=== PATIENT | female | born 1985 | race Caucasian/White ===

== ENCOUNTER 2020-07-29 11:02 | Inpatient (IN) | payer BC ==
[~2020-07-29] VITALS: Ht 170.2 cm; Wt 56.7 kg
[2020-07-29 12:20] LABS: ANION GAP 15.8 mmol/L (8-16); CALCIUM 9.9 mg/dL (8.5-10.1); CARBON DIOXIDE 26.2 mmol/L (21.0-32.0)
[2020-07-29 12:22] LABS: BASOPHILS 0.2 % (0-2); EOSINOPHILS 0.6 % (0-7); HEMATOCRIT 39.6 % (36.0-48.0); HEMOGLOBIN 12.7 g/dL (12-16); LYMPHOCYTES 11.7 % (15-50); MCH 28.9 pg (26.0-34.0); MCHC 32.1 g/dL (31.0-37.0); MCV 90.2 fL (80.0-100.0); MEAN PLATELET VOLUME 8.7 fL (7.4-10.4); MONOCYTES 3.5 % (2-11)
[2020-07-29 12:24] LABS: HCG SERUM NEGATIVE (NEGATIVE)
[2020-07-29 12:27] LABS: ALBUMIN 4.4 g/dL (3.4-5.0); BILIRUBIN - TOTAL 0.29 mg/dL (0.2-1.3); PROTEIN - SERUM 8.8 g/dL (6.4-8.2)
[2020-07-29 12:37] LABS: PLATELET COUNT 410 10x3/uL (130-400)
[2020-07-29 16:03] LABS: BILIRUBIN NEGATIVE (NEGATIVE); KETONE NEGATIVE mg/dL (< 1+); NITRITE NEGATIVE (NEGATIVE); SQUAMOUS EPITHELIAL 5 HPF (0-4); UROBILINOGEN NORMAL mg/dL (< 2)
--- NOTE | 2020-07-29 16:32 | NUR ---
SPOKE TO DR. COPELAND ABOUT INSULIN ORDER, HE STATED TO HOLD INSULIN AND DOCCUMENT REFUSAL DUE TO PATIENT STATING SHE NEVER HAS BEEN ON INSULIN NOR MEDICATION FOR BLOOD SUGAR AND FOR BLOOD SUGAR BEING 124.
--- NOTE | 2020-07-29 19:51 | NUR ---
PT ARRIVED ON UNIT VIA STRETCHER, ESCORTED BY ER NURSE AND FAMILY MEMBER. POSITIONED IN BED FOR COMFORT. IV TO LEFT AC PATENT WITH NS INFUSING AT 100 ML/HR, AND PROTINIX INFUSING AT 10 ML/HR. WILL MONITOR FOR NEEDS.
[2020-07-29 20:00] VITALS: BP 110/70
--- NOTE | 2020-07-29 20:25 | NUR ---
HS MEDICATIONS GIVEN. PT RESTING QUIETLY AT THIS TIME. FAMILY MEMBER IS AT BEDSIDE.
--- NOTE | 2020-07-29 22:39 | NUR ---
PT WITH ELEVATED TEMP OF 101.6 DEGREES. TARA WESTFALL AND RECEIVED ORDER FOR TYLENOL SUPP 650 MG Q6HR PRN FEVER.
--- NOTE | 2020-07-29 22:49 | NUR ---
TEMP 99.6 TEMPORALLY....PT DECLINES TYLENOL SUPPOSITORY AT THIS TIME
[2020-07-30] VITALS: BP 124/59
[2020-07-30 00:33] VITALS: BP 110/70; BMI 19.6
--- NOTE | 2020-07-30 02:46 | NUR ---
PT CRYING AND YELLING IN PAIN. GAVE ZOFRAN 4 MG IVP WITH NO IMPROVEMENT. CALLED [facility] AND RECEIVED ORDER TO CHANGE DILAUDID FROM SCHEDULED TO MANUFACTURING SOFTWARE ENGINEER - 0.2/11/18 SETTINGS.
[2020-07-30 04:00] VITALS: BP 122/73
--- NOTE | 2020-07-30 04:00 | NUR ---
PAIN BETTER CONTROLLED NOW WITH MANAGER FUND. PT RESTING WITH EYES CLOSED AT THIS TIME.
[2020-07-30 05:55] LABS: BASOPHILS 0.1 % (0-2); EOSINOPHILS 0 % (0-7); LYMPHOCYTES 6.7 % (15-50); MCH 29.4 pg (26.0-34.0); MEAN PLATELET VOLUME 8.6 fL (7.4-10.4); NEUTROPHILS 87.2 % (40-80); RDW 15.8 % (11.5-14.5)
[2020-07-30 06:29] LABS: ALBUMIN 2.9 g/dL (3.4-5.0); ALKALINE PHOSPHATASE 33 U/L (30-120); ALT (SGPT) 7 U/L (10-68); BILIRUBIN - TOTAL 0.39 mg/dL (0.2-1.3); CALC OSMOLALITY 279 mosm/kg (275-300); CARBON DIOXIDE 24.3 mmol/L (21.0-32.0); CHLORIDE - SERUM 106 mmol/L (98-107); CREATININE - SERUM 0.6 mg/dL (0.6-1.3); GLUCOSE 108 mg/dL (74-106); LIPASE 477 U/L (73-393); MAGNESIUM - SERUM 1.7 mg/dL (1.8-2.4); POTASSIUM - SERUM 3.4 mmol/L (3.5-5.1); PROTEIN - SERUM 6.4 g/dL (6.4-8.2); SODIUM 139 mmol/L (136-145); UREA NITROGEN 14 mg/dL (7-18); eGFR NON AFRICAN AMERICAN > 90 mL/min (90-120)
[2020-07-30 06:36] LABS: HEMATOCRIT 28.7 % (36.0-48.0); HEMOGLOBIN 9.5 g/dL (12-16); PLATELET COUNT 214 10x3/uL (130-400); RBC 3.22 10x6/uL (4.00-5.40); WBC 10.3 10x3/uL (4.8-10.8)
--- NOTE | 2020-07-30 09:00 | NUR ---
ASSESSMENT PEER FLOW SHEET. PATIENT IS WITHOUT DISTRESS.MONITOR FOR NEEDS
[2020-07-30 09:07] VITALS: BP 124/70
[2020-07-30 13:51] VITALS: Ht 170.2 cm; Wt 56.7 kg
[2020-07-30 17:08] VITALS: BP 129/75
[2020-07-30 20:00] VITALS: BP 117/70
--- NOTE | 2020-07-30 20:30 | NUR ---
ASSESSMENT PER FLOW SHEET, VS OBTAINED PER DELI/BAKERY ASSOCIATE, IV IN RIGHT WRIST INTACT WITH NO REDNESS OR EDEMA INFUSING NS, PROTONIX DRIP, AND DILAUDID PER MD ORDERS, SEE EMAR, PT INST ON NPO, VERBALIZES UNDERSTANDING, DENIES NEEDS AT THIS TIME, S/O AT BEDSIDE
[2020-07-31] VITALS (7 sets, daily range): BP systolic 120–140; BP diastolic 68–81
[2020-07-31 06:19] LABS: BASOPHILS 0.2 % (0-2); EOSINOPHILS 0.1 % (0-7); HEMOGLOBIN 8.4 g/dL (12-16); LYMPHOCYTES 6.6 % (15-50); MCH 29.8 pg (26.0-34.0); MCHC 33.5 g/dL (31.0-37.0); MEAN PLATELET VOLUME 8.2 fL (7.4-10.4); MONOCYTES 5.5 % (2-11); NEUTROPHILS 87.6 % (40-80); PLATELET COUNT 200 10x3/uL (130-400); RBC 2.81 10x6/uL (4.00-5.40); RDW 15.5 % (11.5-14.5); WBC 8.9 10x3/uL (4.8-10.8)
[2020-07-31 07:10] LABS: ALBUMIN 2.6 g/dL (3.4-5.0); ALKALINE PHOSPHATASE 37 U/L (30-120); BILIRUBIN - TOTAL 0.25 mg/dL (0.2-1.3); CALC OSMOLALITY 274 mosm/kg (275-300); CALCIUM 7.8 mg/dL (8.5-10.1); CARBON DIOXIDE 23.2 mmol/L (21.0-32.0); CHLORIDE - SERUM 105 mmol/L (98-107); CREATININE - SERUM 0.5 mg/dL (0.6-1.3); GLUCOSE 88 mg/dL (74-106); MAGNESIUM - SERUM 1.9 mg/dL (1.8-2.4); PHOSPHOROUS 1.6 mg/dL (2.5-4.9); POTASSIUM - SERUM 3.4 mmol/L (3.5-5.1); PROTEIN - SERUM 6.4 g/dL (6.4-8.2); SODIUM 138 mmol/L (136-145); UREA NITROGEN 12 mg/dL (7-18); eGFR NON AFRICAN AMERICAN > 90 mL/min (90-120)
[2020-07-31 07:12] LABS: ALT (SGPT) 12 U/L (10-68); LIPASE 170 U/L (73-393)
[2020-08-01 04:00] VITALS: BP 115/72
[2020-08-01 06:15] LABS: BASOPHILS 0.2 % (0-2); EOSINOPHILS 0.3 % (0-7); HEMATOCRIT 24.1 % (36.0-48.0); LYMPHOCYTES 7.2 % (15-50); MCH 29.7 pg (26.0-34.0); MCHC 33.2 g/dL (31.0-37.0); MCV 89.5 fL (80.0-100.0); MEAN PLATELET VOLUME 8.8 fL (7.4-10.4); MONOCYTES 7.3 % (2-11); PLATELET COUNT 189 10x3/uL (130-400); RBC 2.69 10x6/uL (4.00-5.40); RDW 15.7 % (11.5-14.5)
[2020-08-01 06:33] LABS: ALBUMIN 2.5 g/dL (3.4-5.0); ALKALINE PHOSPHATASE 32 U/L (30-120); ALT (SGPT) 14 U/L (10-68); BILIRUBIN - TOTAL 0.26 mg/dL (0.2-1.3); CALC OSMOLALITY 276 mosm/kg (275-300); CALCIUM 8.3 mg/dL (8.5-10.1); CARBON DIOXIDE 22.4 mmol/L (21.0-32.0); CHLORIDE - SERUM 104 mmol/L (98-107); CREATININE - SERUM 0.5 mg/dL (0.6-1.3); GLUCOSE 81 mg/dL (74-106); LIPASE 189 U/L (73-393); MAGNESIUM - SERUM 1.9 mg/dL (1.8-2.4); PHOSPHOROUS 1.8 mg/dL (2.5-4.9); PROTEIN - SERUM 6.6 g/dL (6.4-8.2); SODIUM 140 mmol/L (136-145); UREA NITROGEN 11 mg/dL (7-18); eGFR NON AFRICAN AMERICAN > 90 mL/min (90-120)
--- NOTE | 2020-08-01 07:30 | NUR ---
REC'D IN BED WITH EYES CLOSED EASILY TO AROUSED WHEN NAME IS SALMERON. RESP EVEN AND UNLABORED WITH NO DISTESS NOTED. ASSESSMENT COMPLETED. NO C/O NOTED OR VOICE. C/L IN REACH AT BEDSIDE.
[2020-08-01 08:41] VITALS: BP 134/79
[2020-08-01] MEDS ORDERED: NEURONTIN800 MG PO (09:03)
[2020-08-01] MEDS ORDERED: KLONOPIN0.5 MG PO (09:05)
[2020-08-01] MEDS ORDERED: HYDROCODON-ACE1 EA10 PO (09:06)
[2020-08-01 13:42] VITALS: BP 126/84
--- NOTE | 2020-08-01 16:30 | NUR ---
PT VOICE CONCERN ABOUT HER DIET CHANGING FROM NPO TO CLEAR LIQUIDS. THIS NURSE INFORMED PT THAT DR. MOHR HAD CHANGE HER DIET ON THIS AFTERNOON AND THAT SHE IS FREE TO HAVE LIQUIDS AT THIS TIME. PT STATED THAT SHE WANT TO SPOKE WITH DR. CAMP TO GET THE OKAY. DR. CAMP WAS NOTIFIED OF PT CONCERN AND THAT PT WANT TO SPEAK WITH HIM.
--- NOTE | 2020-08-01 17:03 | NUR ---
I have reviewed this patient and I concur with the Shift Assessment completed by the Licensed Practical Nurse today this shift.
[2020-08-01 17:04] VITALS: BP 126/78
[2020-08-01 20:00] VITALS: BP 119/74
[2020-08-02] VITALS: BP 112/69
[2020-08-02 04:00] VITALS: BP 124/78
[2020-08-02 06:17] LABS: BASOPHILS 0.3 % (0-2); EOSINOPHILS 2.1 % (0-7); HEMATOCRIT 25.5 % (36.0-48.0); HEMOGLOBIN 8.5 g/dL (12-16); LYMPHOCYTES 11.5 % (15-50); MCH 29.6 pg (26.0-34.0); MCHC 33.5 g/dL (31.0-37.0); MCV 88.4 fL (80.0-100.0); MEAN PLATELET VOLUME 8.8 fL (7.4-10.4); MONOCYTES 10.5 % (2-11); NEUTROPHILS 75.6 % (40-80); PLATELET COUNT 211 10x3/uL (130-400); RBC 2.88 10x6/uL (4.00-5.40); RDW 15.5 % (11.5-14.5)
[2020-08-02 06:27] LABS: WBC 5.4 10x3/uL (4.8-10.8)
[2020-08-02 06:49] LABS: ALBUMIN 2.8 g/dL (3.4-5.0); ALKALINE PHOSPHATASE 36 U/L (30-120); ALT (SGPT) 14 U/L (10-68); CALCIUM 8.5 mg/dL (8.5-10.1); CARBON DIOXIDE 26.4 mmol/L (21.0-32.0); CHLORIDE - SERUM 103 mmol/L (98-107); CREATININE - SERUM 0.5 mg/dL (0.6-1.3); GLUCOSE 104 mg/dL (74-106); MAGNESIUM - SERUM 1.9 mg/dL (1.8-2.4); POTASSIUM - SERUM 3.4 mmol/L (3.5-5.1); PROTEIN - SERUM 7.3 g/dL (6.4-8.2); SODIUM 139 mmol/L (136-145); eGFR NON AFRICAN AMERICAN > 90 mL/min (90-120)
[2020-08-02 06:53] LABS: LIPASE 246 U/L (73-393)
[2020-08-02 06:54] LABS: CALC OSMOLALITY 275 mosm/kg (275-300); PHOSPHOROUS 1.4 mg/dL (2.5-4.9); UREA NITROGEN 8 mg/dL (7-18)
[2020-08-02 09:41] VITALS: BP 131/76
--- NOTE | 2020-08-02 12:01 | NUR ---
I have reviewed this patient and I concur with the Shift Assessment completed by the Licensed Practical Nurse today this shift.
[2020-08-02 12:07] VITALS: BP 132/74
--- NOTE | 2020-08-02 13:32 | NUR ---
Nutrition follow-up: Diet just advanced to clear liquids +BM; loose Labs reviewed Wt: 124# Recommend: If diet unable to advance past clear liquids pt would benefit from ProcalAmine PPN short-term @ 75 ml/hr RDN will follow-up on pts progress in 3-5 days.
[2020-08-02 18:10] VITALS: BP 134/91
--- NOTE | 2020-08-02 19:01 | NUR ---
CALL WAS PLACED TO WORK OVER RIG OPERATOR WHICH IS HERBERTH ABOUT PT REQUESTING SOMETHING MORE FOR PAIN WAS INFORMED THAT IS WOULD BE OKAY TO GIVEN PER [facility]. THIS NURSE INFORMED PT AND PT STATED THAT SHE DOESN'T WANT IT. C/L IN REACH AT BEDSIDE.
[2020-08-02 21:05] VITALS: BP 120/90
[2020-08-03 06:48] LABS: BASOPHILS 0.5 % (0-2); EOSINOPHILS 3.5 % (0-7); HEMATOCRIT 23.6 % (36.0-48.0); HEMOGLOBIN 7.9 g/dL (12-16); LYMPHOCYTES 14.6 % (15-50); MCH 29.3 pg (26.0-34.0); MCHC 33.7 g/dL (31.0-37.0); MCV 86.8 fL (80.0-100.0); MEAN PLATELET VOLUME 8.4 fL (7.4-10.4); MONOCYTES 11.9 % (2-11); NEUTROPHILS 69.5 % (40-80); PLATELET COUNT 226 10x3/uL (130-400); RBC 2.71 10x6/uL (4.00-5.40); RDW 15.7 % (11.5-14.5)
[2020-08-03 06:57] LABS: ALBUMIN 2.7 g/dL (3.4-5.0); ALKALINE PHOSPHATASE 30 U/L (30-120); ALT (SGPT) 13 U/L (10-68); BILIRUBIN - TOTAL 0.22 mg/dL (0.2-1.3); CALC OSMOLALITY 278 mosm/kg (275-300); CALCIUM 8.3 mg/dL (8.5-10.1); CARBON DIOXIDE 28.8 mmol/L (21.0-32.0); CHLORIDE - SERUM 104 mmol/L (98-107); CREATININE - SERUM 0.6 mg/dL (0.6-1.3); GLUCOSE 101 mg/dL (74-106); LIPASE 204 U/L (73-393); MAGNESIUM - SERUM 1.7 mg/dL (1.8-2.4); PROTEIN - SERUM 6.7 g/dL (6.4-8.2); SODIUM 141 mmol/L (136-145); UREA NITROGEN 7 mg/dL (7-18); eGFR NON AFRICAN AMERICAN > 90 mL/min (90-120)
[2020-08-03 06:58] LABS: PHOSPHOROUS 2.6 mg/dL (2.5-4.9); POTASSIUM - SERUM 2.6 mmol/L (3.5-5.1)
--- NOTE | 2020-08-03 07:58 | NUR ---
IN BED, FAMILY AT BEDSIDE. DENIES NEEDS AT THIS TIME. BED LOW POSITION, CALL LIGHT IN REACH. WILL CONTINUE TO MONITOR.
[2020-08-03 08:20] VITALS: BP 115/66
[2020-08-03 10:10] LABS: % SATURATION 4 % (15-55); IRON 14 ug/dl (35-150); TOTAL IRON BIND CAPACITY 284 ug/dl (260-445); UNSAT IRON BIND CAPACITY 270 ug/dl (150-375)
[2020-08-03] MEDS ORDERED: LEVAQUIN750 MG PO (13:12)
[2020-08-03] MEDS ORDERED: FLAGYL500 MG PO (13:12)
[2020-08-03] MEDS ORDERED: MIRALAX17 GM PO (13:13)
[2020-08-03] MEDS ORDERED: FERROUS SULFAT325 MG PO (13:13)
[2020-08-03] MEDS ORDERED: PROTONIX40 MG PO (13:13)
[2020-08-03] MEDS ORDERED: K-DUR20 MEQ PO (13:19)
[2020-08-03 13:22] VITALS: BP 133/76
--- NOTE | 2020-08-03 15:00 | NUR ---
CALLED DR SANTIAGO RE DIET ORDERS FOR D/C. REC FULL LIQUIDS X 1 WEEK. ALSO REC PT BE D/C'D HOME ON CARAFATE 1 GM AC&HS. CALLED TO [id number]
[2020-08-03] MEDS ORDERED: CARAFATE1 G PO (15:01)
--- NOTE | 2020-08-03 15:49 | NUR ---
DISCHARGE PAPERS COMPLETE. NO FURTHER QUESTIONS. DISCUSSED EDUCATION WITH PATIENT AND FAMILY AT BEDSIDE. IV CATH REMOVED, CATH TIP INTACT. GATHERED BELONGINGS. LEFT UNIT VIA WHEELCHAIR TO HOME AT THIS TIME.
--- NOTE | 2020-08-03 20:25 | MORECARE ---
CASE MANAGEMENT DISCHARGE SUMMARY PATIENT: NIKOLAS BROCK UNIT: [id number] ADM DATE: 07/29/20 AGE: 34 : 83 SEX: F ROOM/BED: D.2223 AUTHOR: CESAR,DOC PHYSICIAN: REFERRING PHYSICIAN: KOLTON COPELAND DO DATE OF SERVICE: 08/03/20 Case Management Discharge Planning Summary COMMENTS ENTERED DATE: 08/03/20 20:18 CT COMMENT TYPE: Discharge Planning REVIEWER: Papito Pichardo CM met with patient to complete DC plan and to evaluate needs. Patient lives independently. Patient names her mother, Florinda Wolf, as her person to notify. Patient stated that her home is safe and has electricity and running water. Patient stated that she has no problems paying for medications and she fills her medications at [facility]. Patient stated that her primary care physician is Dr. Valencia. At discharge, the patient plans to return home and feels this is a safe discharge. CM discussed availability of home health, rehab services, and medical equipment. Patient declined HHS, SNF, IPR, and DME. Patient voiced no other needs at this time and is satisfied with DC plan. CM will continue to follow and will assist as needed with dc plans/needs. DCP REVIEW SUMMARY ANTICIPATED D/C DATE: 08/03/2020 EXPECTED LOS : 5 CASE STATUS: DCP Initiated INITIAL REVIEW: 07/29/2020 INITIAL REVIEWER: Papito Pichardo FINAL DISCHARGE DISPOSITION: : FINAL REVIEWER: FINAL REVIEW DATE: DCP Focus Questions & Answers DCP Evaluation QUESTION: ANSWER Patient gives permission to discuss discharge plans with: (name, relationship and number) : motherFlorinda, Patient's ability to cope with chronic illness : d. No chronic illness Patient's current cognitive status: : *Oriented to person, place, situation, time and present Family / Caregiver's ability to cope with chronic illness: : a. Adequate (ability to meet patient's medical needs, ensures patient attends medical appts.) Patient and/or caregiver agree upon recommended discharge plan? : Yes Physical Status: : Independent with ADL's Family / Caregiver's ability to cope with chronic illness: : a. Adequate (ability to meet patient's medical needs, ensures patient attends medical appts.) Functional screen assessment: : Basic needs can adequately be met by self Does the patient have the ability to pay for or attain post discharge needs / services? : Yes Living Arrangements: : Home with Extended Family Is there a likelihood that the patient will require additional services to return to the preadmission environment? : No Equipment needed for post hospitalization: : None Baseline cognitive status: : *Oriented to person, place, situation, time and present Patient with capacity for self-care or can be cared for in same environment as prior to hospitalization? : Yes Physical environment modification needed / anticipated for discharge: : No Medication Management: : Patient states can afford medications Medication Management: : Patient states can read and understand medication labels Pharmacy name(s): : [facility] Does Patient have transportation to get home and to follow-up medical appointments when discharged from the hospital? : Yes Would patient like to participate in any Care Coordination programs (if applicable): : Not applicable Does the patient have electricity at home? : Yes Does the patient have running water in their house? : Yes Equipment in use: : None Mental health screen: : No mental health history DCP Re-evaluation QUESTION: ANSWER Would patient like to participate in any Care Coordination programs (if applicable): : Not applicable PATIENT: NIKOLAS BROCK ENCOUNTER: [id number] MEDICAL RECORD#: [id number] ADMISSION DATE: 07/29/2020 DISCHARGE DATE: 08/03/2020 ATTENDING MD: KOLTON SHIPLEY : AGE: 34 MARITAL STATUS: M DC PLAN ID: [id number] FACILITY: [facility] PRINTED ON: 08/03/20 20:24 CT All edits/amendments must be made on the electronic document DICTATION DATE: 08/03/202023 IMPLEMENTATION MANAGER: JOSE MANUEL 08/03/202023 RPT#: [id number] DC DATE:08/03/20 STATUS: DIS IN [facility] [address] [place] [address] END OF REPORT
--- NOTE | 2020-08-05 08:38 | MORECARE ---
CASE MANAGEMENT DISCHARGE SUMMARY PATIENT: NIKOLAS BROCK UNIT: [id number] ADM DATE: 07/29/20 AGE: 34 : 83 SEX: F ROOM/BED: D.2223 AUTHOR: CESAR,DOC PHYSICIAN: REFERRING PHYSICIAN: KOLTON COPELAND DO DATE OF SERVICE: 08/05/20 Case Management Discharge Planning Summary COMMENTS ENTERED DATE: 08/03/20 20:18 CT COMMENT TYPE: Discharge Planning REVIEWER: Papito Pichardo CM met with patient to complete DC plan and to evaluate needs. Patient lives independently. Patient names her mother, Florinda Wolf, as her person to notify. Patient stated that her home is safe and has electricity and running water. Patient stated that she has no problems paying for medications and she fills her medications at [facility]. Patient stated that her primary care physician is Dr. Valencia. At discharge, the patient plans to return home and feels this is a safe discharge. CM discussed availability of home health, rehab services, and medical equipment. Patient declined HHS, SNF, IPR, and DME. Patient voiced no other needs at this time and is satisfied with DC plan. CM will continue to follow and will assist as needed with dc plans/needs. DCP REVIEW SUMMARY ANTICIPATED D/C DATE: 08/03/2020 EXPECTED LOS : 5 CASE STATUS: DCP Initiated INITIAL REVIEW: 07/29/2020 INITIAL REVIEWER: Papito Pichardo FINAL DISCHARGE DISPOSITION: : FINAL REVIEWER: FINAL REVIEW DATE: DCP Focus Questions & Answers DCP Evaluation QUESTION: ANSWER Patient gives permission to discuss discharge plans with: (name, relationship and number) : motherFlorinda, Patient's ability to cope with chronic illness : d. No chronic illness Patient's current cognitive status: : *Oriented to person, place, situation, time and present Family / Caregiver's ability to cope with chronic illness: : a. Adequate (ability to meet patient's medical needs, ensures patient attends medical appts.) Patient and/or caregiver agree upon recommended discharge plan? : Yes Physical Status: : Independent with ADL's Family / Caregiver's ability to cope with chronic illness: : a. Adequate (ability to meet patient's medical needs, ensures patient attends medical appts.) Functional screen assessment: : Basic needs can adequately be met by self Does the patient have the ability to pay for or attain post discharge needs / services? : Yes Living Arrangements: : Home with Extended Family Is there a likelihood that the patient will require additional services to return to the preadmission environment? : No Equipment needed for post hospitalization: : None Baseline cognitive status: : *Oriented to person, place, situation, time and present Patient with capacity for self-care or can be cared for in same environment as prior to hospitalization? : Yes Physical environment modification needed / anticipated for discharge: : No Medication Management: : Patient states can afford medications Medication Management: : Patient states can read and understand medication labels Pharmacy name(s): : [facility] Does Patient have transportation to get home and to follow-up medical appointments when discharged from the hospital? : Yes Would patient like to participate in any Care Coordination programs (if applicable): : Not applicable Does the patient have electricity at home? : Yes Does the patient have running water in their house? : Yes Equipment in use: : None Mental health screen: : No mental health history DCP Re-evaluation QUESTION: ANSWER Would patient like to participate in any Care Coordination programs (if applicable): : Not applicable PATIENT: NIKOLAS BROCK ENCOUNTER: [id number] MEDICAL RECORD#: [id number] ADMISSION DATE: 07/29/2020 DISCHARGE DATE: 08/03/2020 ATTENDING MD: KOLTON SHIPLEY : AGE: 34 MARITAL STATUS: M DC PLAN ID: [id number] FACILITY: [facility] PRINTED ON: 08/05/20 8:38 CT All edits/amendments must be made on the electronic document DICTATION DATE: 08/05/20837 SR VICE PRESIDENT: JOSE MANUEL 08/05/20837 RPT#: [id number] DC DATE:08/03/20 STATUS: DIS IN [facility] [address] [place] [address] END OF REPORT
== END 2020-08-03 15:50 | disposition home or self-care (01) | DRG 381 ==
LOC: D.ER 11:02 → D.MS 18:14
PROVIDERS: Emergency Medicine; Family Medicine; ADMIT Family Medicine; ATTEND Family Medicine
DX: K25.5 Chronic or unspecified gastric ulcer with perforation (principal); Z68.1 Body mass index [BMI] 19.9 or less, adult; Q70.9 Syndactyly, unspecified; M06.9 Rheumatoid arthritis, unspecified; M32.9 Systemic lupus erythematosus, unspecified; R63.6 Underweight